=== PATIENT | female | born 1965 | race Caucasian/White ===

== ENCOUNTER 2017-03-20 10:29 | Inpatient (IN) | payer MEDICAID ==
[~2017-03-20] VITALS: Ht 149.9 cm; Wt 61.0 kg
[~2017-03-20 10:29] MED LIST: COR20 PO; FER300 PO; PROTONIX40 MG PO; VITAMIN B12500 MCG PO
--- NOTE | 2017-03-20 10:46 | NUR ---
C/O N/V WITH BLOOD IN STOOL THAT STARTED THIS AM. DENIES ABD PAIN OR DISCOMFORT. ABD SOFT AND NONTENDER. STOOL DARK IN COLOR. HAS HX OF GI BLEED DUE TO CIRRHOSIS. PT CLAIMS ONLY HAD ONE EPISODE OF BLOODY STOOK BUT ALSO HAD BLOOD IN VOMIT THIS AM. STILL HAS NAUSEA AT THIS TIME. PT IS ALERT AND ORIENTED WITH STABLE VITALS AND 0 S/S DISTRESS NOTED. CONNECTED TO WET MIX OPERATOR
--- NOTE | 2017-03-20 10:47 | NUR ---
DR HAN AT BEDSIDE FOR EVAL
[2017-03-20 11:19] LABS: CALCIUM 8.3 mg/dL (8.5-10.1); CARBON DIOXIDE 24.8 mmol/L (21-32); CHLORIDE SERUM 105 mmol/L (98-107); CREATININE SERUM 0.6 mg/dL (0.6-1.0); GFR1 > 60 mL/min; GLUCOSE SERUM 270 mg/dL (74-106); SODIUM SERUM 140 mmol/L (136-145)
[2017-03-20 11:22] LABS: PLATELET COUNT 156 x10^3mcL (130-400); RED CELL DISTRIBUTION WIDTH 14.5 % (11.5-14.5)
[2017-03-20 11:23] LABS: ALKALINE PHOSPHATASE 243 U/L (46-116); ALT/SGPT 46 U/L (14-59); AST/SGOT 33 U/L (15-37); TOTAL PROTEIN, SERUM 7.7 g/dL (6.4-8.2)
[2017-03-20 11:24] LABS: ALBUMIN 2.7 g/dL (3.4-5.0)
[2017-03-20 11:33] LABS: BASOPHIL % 2.3 % (0-2)
--- NOTE | 2017-03-20 11:50 | NUR ---
PATIENT LAYING LEFT SIDE WITH EYES CLOSED. NO S/S DISTRESS OR PAIN AT THIS TIME. STABLE VITALS AND PENDING DC
--- NOTE | 2017-03-20 12:04 | NUR ---
REPORT GIVEN TO [facility] TELE FLOOR
--- NOTE | 2017-03-20 12:21 | NUR ---
WAITING FOR ADMIT ORDERS; 2ND TEXT AT THIS TIME
--- NOTE | 2017-03-20 12:38 | NUR ---
3RD TEXT FOR ADMIT ORDERS AT THIS TIME TO DR. MENDOZA PER PAT PRINTER SLOTTER OPERATOR
--- NOTE | 2017-03-20 12:38 | NUR ---
STILL AWAITING ADMIT ORDERS
--- NOTE | 2017-03-20 12:41 | NUR ---
AWAITING ADMIT ORDERS
--- NOTE | 2017-03-20 13:08 | NUR ---
RECEIVED PT FROM ED VIA [facility], CAME IN DUE TO VOMITING BLACK COLORED VOMITUS. AAOX4. DENIES HEADACHE/DIZZINESS. NO SOB NOTED. LUNG SOUNDS CTA. DENIES CHEST PAIN/PRESSURE, NSR ON THE MONITOR. STATED THAT SHE ALSO HAD A BLACK STOOL TODAY. ABDOMEN IS DISTENDED BUT SOFT. STATED THAT SHE HAS MILD ABDOMINAL PAIN WHEN BEING PUSHED. MILD JAUNDICE NOTED. IV SITE PATENT AND INTACT. FAMILY AT BEDSIDE. SIDE RAILS UPX2. CALL LIGHT ON REACH. ENDORSED TO PRIMARY NURSE ASHLEY FOR CONTINUITY OF CARE
[2017-03-20 13:20] VITALS: BP 103/63
[2017-03-20 13:25] VITALS: Ht 149.9 cm; Wt 61.0 kg
--- NOTE | 2017-03-20 13:49 | NUR ---
PT ON BED, AWAKE, ALERT, AND ORIENTED. FAMILY AT BEDSIDE
[2017-03-20 15:07] LABS: MAGNESIUM 1.7 mg/dL (1.8-2.4); PHOSPHOROUS 3.7 mg/dL (2.5-4.9)
[2017-03-20 15:17] LABS: CHOLESTEROL/HDL RATIO 5.1
[2017-03-20 16:06] LABS: RED CELL DISTRIBUTION WIDTH 14.1 % (11.5-14.5)
[2017-03-20 16:15] LABS: PLATELET COUNT 125 x10^3mcL (130-400)
--- NOTE | 2017-03-20 16:30 | NUR ---
DR. RUIZ AT BEDSIDE ASSESSING PT
[2017-03-20 16:59] VITALS: BP 101/47
--- NOTE | 2017-03-20 17:45 | NUR ---
PT ON BED, AWAKE, ALERT, AND ORIENTED. HAS NO COMPLAINT OF PAIN, SOB, OR DIZZINESS. RESPONDS WELL TO QUESTION AND ANSWER. SIDE RAILS UP, CALL LIGHT WITHIN REACH, WILL CONTINUE TO MONITOR
[2017-03-20 18:57] LABS: MONOCYTE 4 % (0-7); SEGMENTED NEUTROPHILS 73 % (37-75)
--- NOTE | 2017-03-20 19:47 | NUR ---
SHIFT REASSESSMENT DONE.PATIENT ALERT AND ORIENTED,MAINLY TELUGU,NEEDS ANTICIPATED. AT BEDSIDE VISITING,SUPPORTIVE OF CARE.NS AT 100 CC/ HOUR.IV SITE GOOD.SKIN INTACT BUT COLOR JAUNDICED ALL OVER.COOPERATIVE OF CARE.CALL LITE IN REACH.
--- NOTE | 2017-03-20 20:14 | NUR ---
DR RUIZ AT BEDSIDE AT THIS TIME DOING RECTAL WITH FEMALE WITNESS,ALSO SEEN STOOL IN TOILET,FOR SURE POSITIVE OB.WILL CHECK IF WE NEED UA FOR LAB.
[2017-03-20 20:46] LABS: T3 TOTAL 1.06 ng/mL
[2017-03-20 20:53] LABS: FREE T4 1.19 ng/dL (0.76-1.46); FREE THYROXINE INDEX 2.4 ug/dL (1.4-4.5); T4(THYROXINE) 7.3 ug/dL (4.7-13.3)
--- NOTE | 2017-03-20 21:00 | NUR ---
US DONE WITHOUT ANY INCIDENT.LIQUID DIET SERVED AFTERMWAS CRAVING,ALSO GIVEN ALL MEDS,LACTULOSE AND MAG PO.SWALLOWS WELL.
[2017-03-20 21:10] LABS: BASOPHIL % 0.4 % (0-2); PLATELET COUNT 144 x10^3mcL (130-400)
[2017-03-20 21:21] LABS: CARBON DIOXIDE 27.4 mmol/L (21-32); CHLORIDE SERUM 110 mmol/L (98-107); CREATININE SERUM 0.5 mg/dL (0.6-1.0); GFR1 > 60 mL/min; GLUCOSE SERUM 167 mg/dL (74-106); POTASSIUM SERUM 3.7 mmol/L (3.5-5.1); SODIUM SERUM 144 mmol/L (136-145)
[2017-03-20 22:00] VITALS: BP 100/50
[2017-03-20 22:12] LABS: RED CELL DISTRIBUTION WIDTH 15.2 % (11.5-14.5)
--- NOTE | 2017-03-20 22:49 | NUR ---
PATIENT SLEEPING COMFORTABLY,NPO AFTER MIDNITE PER DR RUIZ.
[2017-03-20 23:20] LABS: UA SPECIFIC GRAVITY 1.015 (1.005-1.035); microscopic required? YES; urine erythrocyte 1+ (NEGATIVE)
[2017-03-20 23:43] LABS: AMPHETAMINE QUAL UR NONE DETECTED (NEG <=1000)
--- NOTE | 2017-03-21 01:10 | NUR ---
PATIENT HAD BLOODY EMESIS EARLIER,ATTENDING PHYSICIAN AWARE.NPO AFTER MIDNITE,POSSIBLE PROCEDURE.
[2017-03-21 05:02] VITALS: BP 100/50
--- NOTE | 2017-03-21 05:29 | NUR ---
I AND O MEASURED.IVF NS AT 100 CC/ HOUR,IV SITE GOOD.PATIENT NPO X MED SINCE MIDNITE.NO COMPLAINT OF PAIN.CALL LIGHT IN REACH.REMAINS ON CONTACT ISOLATION FOR HX MRSA NARES.WILL ENDORSE TO INCOMING SHIFT.
[2017-03-21 06:36] LABS: ALKALINE PHOSPHATASE 215 U/L (46-116); ALT/SGPT 98 U/L (14-59); AST/SGOT 140 U/L (15-37); BILIRUBIN TOTAL 1.34 mg/dL (0.20-1.00); CALCIUM 7.8 mg/dL (8.5-10.1); CARBON DIOXIDE 23.9 mmol/L (21-32); CHLORIDE SERUM 112 mmol/L (98-107); CREATININE SERUM 0.5 mg/dL (0.6-1.0); GFR1 > 60 mL/min; GLUCOSE SERUM 224 mg/dL (74-106); POTASSIUM SERUM 3.9 mmol/L (3.5-5.1); SODIUM SERUM 143 mmol/L (136-145); TOTAL PROTEIN, SERUM 6.2 g/dL (6.4-8.2)
[2017-03-21 06:38] LABS: BASOPHIL % 0.4 % (0-2); PLATELET COUNT 136 x10^3mcL (130-400)
--- NOTE | 2017-03-21 06:43 | NUR ---
DR SAL GI CONSULT,CALLED AT THIS TIME AND ORDERED PATIENT NPO,GET CONSENT FOR EGD,CHARGE NURSE ARIANE AWARE,THERE IS NO ORDER FOR GI CONSULT YET,DR BARBER MADE AWARE TO ENTER GI CONSULT ORDER.ARIANE SPOKE TO ELISABETH.SAYS HE WILL TAKE CARE OF IT.
[2017-03-21 06:53] LABS: ALBUMIN 2.2 g/dL (3.4-5.0)
[2017-03-21 07:05] LABS: RED CELL DISTRIBUTION WIDTH 15.6 % (11.5-14.5)
[2017-03-21 10:11] VITALS: BP 95/45
--- NOTE | 2017-03-21 12:20 | NUR ---
INFORMED CONSENT FOR EGD DONE. SCHEDULED FOR 0. FIRMWARE ENGINEER ID NUMBER [id number].
--- NOTE | 2017-03-21 12:33 | NUR ---
PT TAKEN DOWN TO GI LAB VIA [facility]ADIA.
[2017-03-21 14:17] VITALS: BP 105/58
--- NOTE | 2017-03-21 14:18 | NUR ---
PT BACK FROM GI LAB. AMBULATED TO BATHROOM WITH ASSISTANCE, C/O MILD DIZZINESS. HAD LOOSE DK RED/BROWN BM X1. SETTLED BACK INTO BED WITH CALL LIGHT WITHIN REACH. FAMILY AT BEDSIDE.
--- NOTE | 2017-03-21 17:07 | NUR ---
PT IS RESTING IN BED, SHE ASKED ABOUT HER DIET. ADVISE WILL BE ABLE TO HAVE A CC/DIABETIC DIET AT DINNER. PT HAS NO PAIN OR DISCOMFORT AT THIS TIME, CALL LIGHT IN REACH, WILL CONTINUE TO MONITOR.
--- NOTE | 2017-03-21 17:53 | NUR ---
GAVE PT 3 UNITS OF REG INSULIN, TOLERATED WELL. IS NOW ABOUT TO HAVE DINNER, DENIES ANY CHEST PAIN, DISTRESS OR DISCOMFORT AT THIS TIME. CALL LIGHT IN REACH, WILL CONTINUE TO MONITOR PT.
[2017-03-21 18:11] VITALS: BP 99/55
--- NOTE | 2017-03-21 18:20 | NUR ---
PT IS RESTING IN BED TALKING TO A FAMILY MEMBER AND AT BEDSIDE. CHANGED IV NS BAG, CALL LIGHT IN REACH, WILL CONTINUE TO MONITOR.
--- NOTE | 2017-03-21 18:44 | NUR ---
MRSA NARES NEGATIVE, ISOLATION LOUISA'Oliver.
--- NOTE | 2017-03-21 19:05 | NUR ---
PT IS RESTING IN BED, DENIES ANY PAIN, DISCOMFORT OR DISTRESS AT THIS TIME. CALL LIGHT IN REACH, BED AT LOW POSITION,WILL ENDORSE PT TO INCOMING NURSE.
--- NOTE | 2017-03-21 20:28 | NUR ---
RECEIVED PT IN BED, ALERT AND ORIENTED. RESP. EVEN AND UNLABORED. ON ROOM AIR, NO DISTRESS NOTED. AFEBRILE AND VITAL SIGNS STABLE. SR ON THE MONITOR, DENIES CHEST PAIN OR ANY DISCOMFORT. ABD. SLIGHTLY DISTENDED, BS ACTIVE, NO N/V NOTED. NO ACTIVE BLEEDING NOTED. IVF, NS AT 100ML/HR, INTACT AND INFUSING VIA RAC, SITE CLEAR. AMBULATORY. ASSISTED WITH HS CARE. CALL LIGHT WITHIN REACH. WILL CONTINUE TO MONITOR.
[2017-03-21 21:56] VITALS: BP 94/51
--- NOTE | 2017-03-22 00:33 | NUR ---
NO COMPLAINTS NOTED. EYES CLOSED, APPEARS COMFORTABLE. FAMILY MEMBER AT THE BEDSIDE. IVF INTACT AND INFUSING WELL, SITE CLEAR. WILL CONTINUE TO MONITOR.
--- NOTE | 2017-03-22 04:36 | NUR ---
SLEEPING, EASILY AROUSABLE. NO DISTRESS NOTED. WILL CONTINUE TO MONITOR.
[2017-03-22 06:06] VITALS: BP 90/53
[2017-03-22 06:12] LABS: BASOPHIL % 0.5 % (0-2)
[2017-03-22 06:23] LABS: ALBUMIN 2.1 g/dL (3.4-5.0); ALKALINE PHOSPHATASE 233 U/L (46-116); ALT/SGPT 147 U/L (14-59); AST/SGOT 177 U/L (15-37); BILIRUBIN TOTAL 0.92 mg/dL (0.20-1.00); CALCIUM 7.5 mg/dL (8.5-10.1); CARBON DIOXIDE 26.7 mmol/L (21-32); CHLORIDE SERUM 115 mmol/L (98-107); CREATININE SERUM 0.5 mg/dL (0.6-1.0); GFR1 > 60 mL/min; GLUCOSE SERUM 126 mg/dL (74-106); MAGNESIUM 1.9 mg/dL (1.8-2.4); PHOSPHOROUS 4.3 mg/dL (2.5-4.9); POTASSIUM SERUM 3.6 mmol/L (3.5-5.1); SODIUM SERUM 148 mmol/L (136-145); TOTAL PROTEIN, SERUM 5.6 g/dL (6.4-8.2)
--- NOTE | 2017-03-22 06:36 | NUR ---
AFEBRILE AND VITAL SIGNS STABLE. RESP. EVEN AND UNLABORED. NO DISTRESS NOTED. SLEPT MOST OF THE NIGHT. NO COMPLAINTS NOTED. IVF INTACT AND INFUSING WELL, SITE CLEAR. DUE MEDS GIVEN ORDERED, JOJO. WELL. WILL ENDORSE TO INCOMING NURSE.
[2017-03-22 07:40] LABS: PLATELET COUNT 93 x10^3mcL (130-400); RED CELL DISTRIBUTION WIDTH 15.5 % (11.5-14.5)
--- NOTE | 2017-03-22 08:30 | NUR ---
PT RESTING IN BED, NO ACUTE RESP DISTRESS NOTED, DENIES ANY DISCOMFORT OR CHEST PAIN AT THIS TIME. CALL LIGHT IN REACH WILL CONTINUE PLAN OF CARE.
--- NOTE | 2017-03-22 08:52 | NUR ---
PT WAS ENDORSE TO ME AT 7AM, PT RESTING IN BED , DENIES PAIN, DISCOMFORT, OR DISTRESS. CALL LIGHT IN REACH, BED LOW POSITION, WILL CONTINUE PLAN OF CARE.
--- NOTE | 2017-03-22 08:56 | NUR ---
DR. SALEH MADE ROUNDS WITH OTHER MEDICAL STAFF AND UPDATED PT PLAN OF CARE, NOTIFIED DR. SALEH/KEITH REGRADING H& H RESULT .01/08, MADE AWARE WITH ORDERS TO STOP IV FLUIDS FOR 4 HOURS. WILL CONTINUE TO MONITOR PLAN OF CARE.
[2017-03-22 10:19] VITALS: BP 90/50
[2017-03-22 11:25] LABS: rbc morphology (normal/abnorm) ABNORMAL (NORMAL)
--- NOTE | 2017-03-22 12:00 | NUR ---
DR. REHMAN HERE AND SEEN THE PT. W/ NEW ORDERS MADE OK PT. TO GO HOME TODAY. PT. MADE AWARE.
--- NOTE | 2017-03-22 12:25 | NUR ---
1. Recommend CCHO-60 gm, 2 gm Na diet. 2. RD provided DM education to pt.
--- NOTE | 2017-03-22 12:25 | NUR ---
Initial Nutrition Assessment Dx: GI Hemorrhage PMHx: Denies PSHx: Cholecystectomy Labs: Na 148 H, BG 126 H, BUN 18, Cr 0.5 L, ALB 2.1 L, AST 177 H, ALT 147 H, ALP 233 H, Ammonia 48 H, H/H 6.2/18 L; (03/20) A1C 8.1 H Meds: Cephulac, Colace, D50, Glucophage, humulin R, mag-ox, protonix, theragran, zofran Current Diet Order: CCHO-60 gm PO Intakes: (03/21) D: 100% Ht: 59", 4' 11". Wt: 134 lb, 61 kg. BMI: 27.2 kg/m2 (Overweight) IBW: 98 lb, 45 kg. %IBW: 135%. Adj BW: 107 lb, 49 kg. UBW: 120 lb, 55 kg. Wt Hx: (12/08/15) 125 lb, 57 kg. Age: 51 Y/O F Food Allergies: None Skin: Intact. Fuad 21. Edema: None GI: Active bowel sounds. Last BM 03/21. Nutrition Consult: Malnutrition, Liver Cirrhosis. Pt found with possible acute GI hemorrhage, hepatic encephalopathy (ammonia 155) on admission, likely secondary to liver cirrhosis per doctor's notes. Per doctor's progress note 03/21, pt will have EGD with Dr. Monique today. Pt is Lao-speaking only, visitor at bedside. RN assisted RD in translation. Pt reported that she is eating good, had 100% of breakfast this morning, dislikes eggs. Pt also reported that she has no history of DM, only found out she has diabetes here in hospital. RD paged Dr. Colmenares regarding recommendations. Note that pt does not exhibit signs and symptoms of malnutrition, is eating good at this time, no prior significant weight loss, no muscle wasting or fat loss noted. Problem with: N: None. V: None. D: None. C: None. Problems with: Chewing: None. Swallowing: None. Current Appetite: Good Recent Weight Change: +14 lb. % Weight Change: 11.6% weight gain due to hungry and eating more Vitamin/Supplement use: Vitamin B12 Diet at Home: Regular Physical Activity: Only at work, lifting things Education: RD provided DM education to pt and visitor at bedside. RD discussed portion control, carb counting, food choices, and physical activity. Handouts provided in Lao. Pt was also encouraged to attend DM class. Flyer provided. Estimated Nutritional Needs Based IBW 98 lb, 45 kg Energy: 7648-5505 kcal/day (25-30 kcal/kg for Maintenance) Protein: 45-59 gm/day (1-1.3 gm/kg for Liver Cirrhosis) Fluids: 1350 ml/day (30 ml/kg for Maintenance) or per doctor Nutrition Diagnosis Altered nutrition related labs related to new onset DM as evidenced by elevated BG 126, A1C 8.1%, no prior history DM Intervention 1. Recommend CCHO-60 gm, 2 gm Na diet. 2. RD provided DM education to pt. Monitor/Evaluate Goal: PO intakes to meet at least 75% of estimated needs Monitor: PO intakes, tolerance to diet, labs, skin integrity, GI function, weights F/U in 7 days as LOW risk (03/29)
[2017-03-22 13:42] LABS: BASOPHIL % 0.5 % (0-2)
[2017-03-22 14:00] VITALS: BP 112/40
[2017-03-22 14:41] LABS: PLATELET COUNT 111 x10^3mcL (130-400); RED CELL DISTRIBUTION WIDTH 15.4 % (11.5-14.5)
[2017-03-22 14:42] LABS: rbc morphology (normal/abnorm) NORMAL (NORMAL)
--- NOTE | 2017-03-22 14:43 | NUR ---
LAB CALLED H/H RESULTS WAS 6.06/09 DR. REHMAN NOTIFIED AND MADE AWARE.
[2017-03-22] MEDS ORDERED: BG FS (15:04)
[2017-03-22] MEDS ORDERED: LAC30L PO (15:04)
[2017-03-22] MEDS ORDERED: PROTONIX40 MG PO (15:07)
[2017-03-22] MEDS ORDERED: GLU500 PO (15:08)
[2017-03-22] MEDS ORDERED: BD ULTRA-FINE1 EAC4 MC (15:09)
[2017-03-22] MEDS ORDERED: FERROUS SULFAT325 M2 PO (15:09)
[2017-03-22 16:26] VITALS: BP 112/40
--- NOTE | 2017-03-22 18:00 | NUR ---
PT. WENT HOME W/ STABLE CONDITION AMBULATORY ACC. W/ HER .DISCHARGED INSTRUCTIONS GIVEN AND DISCUSSED TO PT. AND VERBALIZED UNDESTANDING OF INSTRUCTIONS GIVEN NO ACUTE DISTRESS NOTED.
== END 2017-03-22 17:54 | disposition home or self-care (01) | DRG 951 ==
LOC: ED 10:29 → DU 11:51
PROVIDERS: Emergency Medicine; Family Medicine; Internal Medicine; ADMIT Family Medicine
PROC: 0DB68ZX Excision of Stomach, Via Natural or Artificial Opening Endoscopic, Diagnostic (ICD-10-PCS; principal; 2017-03-21 12:30)
PROC: 0DP58DZ Removal of Intraluminal Device from Esophagus, Via Natural or Artificial Opening Endoscopic (ICD-10-PCS; 2017-03-21 12:30)
DX: K70.30 Alcoholic cirrhosis of liver without ascites (principal); N17.0 Acute kidney failure with tubular necrosis; I85.01 Esophageal varices with bleeding; E43 Unspecified severe protein-calorie malnutrition; E87.0 Hyperosmolality and hypernatremia; K83.3 Fistula of bile duct; D68.69 Other thrombophilia; K76.6 Portal hypertension; K29.60 Other gastritis without bleeding; D69.59 Other secondary thrombocytopenia; E11.65 Type 2 diabetes mellitus with hyperglycemia; E83.42 Hypomagnesemia; K72.90 Hepatic failure, unspecified without coma; E78.5 Hyperlipidemia, unspecified; F10.21 Alcohol dependence, in remission; N39.0 Urinary tract infection, site not specified; D50.0 Iron deficiency anemia secondary to blood loss (chronic); R31.9 Hematuria, unspecified; T85.520A Displacement of bile duct prosthesis, initial encounter; E87.8 Other disorders of electrolyte and fluid balance, not elsewhere classified; Z68.27 Body mass index [BMI] 27.0-27.9, adult; F17.210 Nicotine dependence, cigarettes, uncomplicated
CPT/HCPCS: 43235; 80307; 82962; 83880; 84439; 87046; 87046-59; C9113; G0480; J1200; J1610; J2250; J2310; J2405; J3010; J3490; J7030; Q0092

== ENCOUNTER 2017-05-24 09:19 | Inpatient (IN) | payer MEDICAID ==
[~2017-05-24] VITALS: Ht 152.4 cm; Wt 72.6 kg
[~2017-05-24 09:19] MED LIST changes: +BD ULTRA-FINE1 EAC4 MC; +BG FS; +FERROUS SULFAT325 M2 PO; +GLU500 PO; +LAC30L PO
[2017-05-24 10:00] LABS: BASOPHIL % 0.3 % (0-2); PLATELET COUNT 169 x10^3mcL (130-400)
[2017-05-24 10:10] LABS: CREATININE SERUM 1.1 mg/dL (0.6-1.0); POTASSIUM SERUM 3.6 mmol/L (3.5-5.1); RED CELL DISTRIBUTION WIDTH 14.6 % (11.5-14.5)
[2017-05-24 10:22] LABS: ALBUMIN 2.2 g/dL (3.4-5.0)
[2017-05-24 10:25] LABS: BILIRUBIN TOTAL 0.76 mg/dL (0.20-1.00); TOTAL PROTEIN, SERUM 6.4 g/dL (6.4-8.2)
[2017-05-24 12:15] LABS: FREE T4 1.04 ng/dL (0.76-1.46); FREE THYROXINE INDEX 2.6 ug/dL (1.4-4.5); T4(THYROXINE) 7.6 ug/dL (4.7-13.3)
[2017-05-24 12:16] LABS: T3 TOTAL 0.86 ng/mL
[2017-05-24 12:21] LABS: UA SPECIFIC GRAVITY 1.015 (1.005-1.035); microscopic required? YES; urine erythrocyte TRACE (NEGATIVE)
[2017-05-24 12:40] LABS: AMPHETAMINE QUAL UR NONE DETECTED (NEG <=1000)
[2017-05-24 12:56] LABS: MAGNESIUM 1.7 mg/dL (1.8-2.4); PHOSPHOROUS 3.5 mg/dL (2.5-4.9)
[2017-05-24 13:00] LABS: CHOLESTEROL/HDL RATIO 6.8
[2017-05-24 13:13] VITALS: BP 83/45
[2017-05-24 14:46] VITALS: BP 95/49
[2017-05-24 16:21] LABS: BASOPHIL % 0.2 % (0-2); RED CELL DISTRIBUTION WIDTH 14.5 % (11.5-14.5)
[2017-05-24 16:26] LABS: RED BLOOD CELLS 1.99 M/mm3 (4.10-5.10)
[2017-05-24 16:30] LABS: PLATELET COUNT 123 x10^3mcL (130-400)
[2017-05-24 16:55] LABS: rbc morphology (normal/abnorm) NORMAL (NORMAL)
[2017-05-24 18:30] VITALS: BP 92/44
[2017-05-24 20:12] LABS: IRON 42 ug/dL (50-170); TOTAL IRON BINDING CAPACITY 280 ug/dL (250-450)
[2017-05-24 20:40] VITALS: BP 95/47
[2017-05-24 20:55] VITALS: BP 92/52
[2017-05-24 23:45] VITALS: BP 93/60
[2017-05-25 01:42] LABS: BASOPHIL % 0.3 % (0-2)
[2017-05-25 01:43] LABS: PLATELET COUNT 108 x10^3mcL (130-400); RED CELL DISTRIBUTION WIDTH 15.8 % (11.5-14.5)
[2017-05-25 01:45] LABS: rbc morphology (normal/abnorm) ABNORMAL (NORMAL)
[2017-05-25 06:24] LABS: CALCIUM 7.2 mg/dL (8.5-10.1); CARBON DIOXIDE 26.3 mmol/L (21-32); CHLORIDE SERUM 116 mmol/L (98-107); CREATININE SERUM 0.6 mg/dL (0.6-1.0); GFR1 > 60 mL/min; GLUCOSE SERUM 133 mg/dL (74-106); POTASSIUM SERUM 3.6 mmol/L (3.5-5.1); SODIUM SERUM 147 mmol/L (136-145)
[2017-05-25 06:33] VITALS: BP 91/49
[2017-05-25 10:05] VITALS: BP 90/43
[2017-05-25 13:25] VITALS: BP 92/44
[2017-05-25 17:10] VITALS: BP 102/44
[2017-05-25 21:47] VITALS: BP 100/51
[2017-05-26 05:42] VITALS: BP 116/60
[2017-05-26 06:23] VITALS: BP 98/58
[2017-05-26 06:44] LABS: CALCIUM 7.2 mg/dL (8.5-10.1); CARBON DIOXIDE 22.6 mmol/L (21-32); CHLORIDE SERUM 113 mmol/L (98-107); CREATININE SERUM 0.5 mg/dL (0.6-1.0); GFR1 > 60 mL/min; GLUCOSE SERUM 115 mg/dL (74-106); POTASSIUM SERUM 3.3 mmol/L (3.5-5.1); SODIUM SERUM 143 mmol/L (136-145)
[2017-05-26 10:05] VITALS: BP 110/58
[2017-05-26 11:43] VITALS: BP 110/58
[2017-05-26] MEDS ORDERED: BG FS (13:04)
[2017-05-26] MEDS ORDERED: BD ULTRA-FINE1 EAC4 MC (13:04)
[2017-05-26] MEDS ORDERED: GLU500 PO (13:04)
[2017-05-26] MEDS ORDERED: GOOD SENSE OMEP20 MG PO (13:05)
[2017-05-26] MEDS ORDERED: GLU5 PO ×2 (13:17→13:49)
[2017-05-26] MEDS ORDERED: THERA TABS1 TAB PO (13:17)
[2017-05-26] MEDS ORDERED: PROPRANOLOL HCL10 MG PO (13:24)
== END 2017-05-26 14:59 | disposition home or self-care (01) | DRG 229 ==
LOC: ED 09:19 → DU 11:42 → MU 11:42 → DU 12:55 → MU 05-25 11:40
PROVIDERS: Emergency Medicine; Internal Medicine Gastroenterology; ADMIT Family Medicine
PROC: 06L34CZ Occlusion of Esophageal Vein with Extraluminal Device, Percutaneous Endoscopic Approach (ICD-10-PCS; principal; 2017-05-25 15:00)
PROC: 0DB78ZX Excision of Stomach, Pylorus, Via Natural or Artificial Opening Endoscopic, Diagnostic (ICD-10-PCS; 2017-05-25 15:00)
DX: I85.11 Secondary esophageal varices with bleeding (principal); N17.0 Acute kidney failure with tubular necrosis; E43 Unspecified severe protein-calorie malnutrition; K70.30 Alcoholic cirrhosis of liver without ascites; D68.69 Other thrombophilia; E11.65 Type 2 diabetes mellitus with hyperglycemia; D62 Acute posthemorrhagic anemia; E83.42 Hypomagnesemia; E78.5 Hyperlipidemia, unspecified; Z68.31 Body mass index [BMI] 31.0-31.9, adult; F17.210 Nicotine dependence, cigarettes, uncomplicated; Z79.84 Long term (current) use of oral hypoglycemic drugs
CPT/HCPCS: 43235; 82962; 83880; 84439; C9113; J1200; J1610; J2250; J2310; J2354; J2405; J3010; J3475; J3490; J7030; J7050; P9016; Q0092; Q0163